=== PATIENT | male | born 1935 | race Caucasian/White ===

== ENCOUNTER → 2016-08-05 | Outpatient (CLI) | payer MEDICARE ==
[2016-08-05 20:35] LABS: BASO % 0 % (0-3); EOS # 0.1 x10^3/uL (0.0-0.7); EOS % 2 % (0-3); HEMATOCRIT 35.8 % (39.0-53.0); HEMOGLOBIN 11.4 g/dL (13.0-17.5); LYMPH % 15 % (24-48); MEAN CORPUSCULAR HEMOGLOBIN 25 pg (25-35); MEAN CORPUSCULAR HGB CONC 32 g/dL (31-37); MEAN CORPUSCULAR VOLUME 78 fL (79-100); MONO # 0.7 x10^3/uL (0.0-1.1); MONO % 11 % (0-9); NEUT # 4.8 x10^3uL (1.8-7.7); NEUT % 72 % (31-73); PLATELET COUNT 128 x10^3/uL (140-400); RED BLOOD COUNT 4.61 x10^6/uL (4.30-5.70); RED CELL DISTRIBUTION WIDTH 17.7 % (11.5-14.5); WHITE BLOOD COUNT 6.7 x10^3/uL (4.0-11.0)
[2016-08-05 20:48] LABS: ALBUMIN 3.6 g/dL (3.4-5.0); CALCIUM 8.4 mg/dL (8.5-10.1); CREATININE 1.5 mg/dL (0.7-1.3); GFR 44.9; POTASSIUM 3.7 mmol/L (3.5-5.1); TOTAL BILIRUBIN 0.5 mg/dL (0.2-1.0); TOTAL PROTEIN 7.1 g/dL (6.4-8.2)
== END | disposition home or self-care (01) ==
LOC: LAB 19:07
PROVIDERS: ATTEND Nurse Practitioner Family
DX: R19.7 Diarrhea, unspecified (principal)
CPT/HCPCS: 36415; 80053; 85027

== ENCOUNTER 2017-11-24 15:09 | Emergency (ER) | payer MEDICARE ==
[~2017-11-24] VITALS: Ht 175.3 cm; Wt 67.4 kg
--- NOTE | 2017-11-24 15:34 | ED.ADGEN ---
Adult General [facility] HPI Patient is a 81 year old male who presents with chest and rib pain. Patient had onset of pain over the left anterior lower portion of his chest. The pain started about 2 hours prior to presentation. Pain has been constant but has waxed and waned in intensity. The pain is not worse with exertion. The patient was at rest when the pain started. He does have a known history of open-heart surgery which she states was for bypass. This was in 1979. The patient is followed by Dr. Lyons. He denies recent illness, fever, cough. He has been at baseline health which is very good. 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 He did not have any diaphoresis or palpitations. He has been compliant with all medications and he does take aspirin daily. Review of Systems Review of Systems Constitutional: Denies fever or chills Eyes: Denies change in visual acuity HENT: Denies nasal congestion Respiratory: Denies cough or shortness of breath Cardiovascular: No additional information not addressed in HPI GI: Denies abdominal pain, nausea, vomiting Musculoskeletal: Denies back pain or joint pain Integument: Denies rash or skin lesions Neurologic: Denies headache Endocrine: Denies polyuria All other systems were reviewed and found to be within normal limits, except as documented in this note. Current Medications Current Medications Current Medications Medications (Trade) Dose Ordered Sig/Tiago Start Time Stop Time Status Last Admin Dose Admin Aspirin (Children'S Aspirin) 324 mg 1X ONCE 11/24/17 16:15 11/24/17 16:17 DC 11/24/17 16:30 324 MG Heparin Sodium (Porcine) (Heparin Sodium) 1,000 unit PRN Q6HRS PRN 11/24/17 16:15 Heparin Sodium/ Dextrose 500 ml @ 0 mls/hr CONT PRN 11/24/17 16:15 11/24/17 16:41 21.6 MLS/HR Nitroglycerin (Nitrostat) 0.4 mg 1X ONCE 11/24/17 16:15 11/24/17 16:17 DC 11/24/17 16:31 0.4 MG Sodium Chloride 1,000 ml @ 125 mls/hr 1X ONCE 11/24/17 16:30 11/25/17 00:29 11/24/17 16:48 125 MLS/HR Allergies Allergies Allergies Coded Allergies Type Severity Reaction Last Updated Verified No Known Drug Allergies 11/24/17 No Physical Exam Physical Exam Constitutional: Well developed, well nourished, no acute distress, non-toxic appearance HENT: Normocephalic, atraumatic, bilateral external ears normal, oropharynx moist, no oral exudates, nose normal Eyes: PERRLA, EOMI, conjunctiva normal Neck: Normal range of motion, no tenderness, supple, no JVD Cardiovascular: [place] heart rate regular rhythm, no murmur Lungs & Thorax: Bilateral breath sounds clear to auscultation, some TTP over the left rib cage Abdomen: Bowel sounds normal, soft, no tenderness Skin: Warm, dry, no erythema, no rash Extremities: no edema. Neurologic: Alert and oriented X 3 Current Patient Data Vital Signs Vital Signs Date Time Temp Pulse Resp B/P (MAP) Pulse Ox O2 Delivery O2 Flow Rate FiO2 11/24/17 16:31 71 170/103 11/24/17 15:10 97.8 18 99 Room Air Lab Results Laboratory Tests Test 11/24/17 15:25 White Blood Count 6.6 x10^3/uL (4.0-11.0) Red Blood Count 4.41 x10^6/uL (4.30-5.70) Hemoglobin 12.2 g/dL (13.0-17.5) L Hematocrit 36.5 % (39.0-53.0) L Mean Corpuscular Volume 83 fL (79-100) Mean Corpuscular Hemoglobin 28 pg (25-35) Mean Corpuscular Hemoglobin Concent 33 g/dL (31-37) Red Cell Distribution Width 17.3 % (11.5-14.5) H Platelet Count 152 x10^3/uL (140-400) Neutrophils (%) (Auto) 68 % (31-73) Lymphocytes (%) (Auto) 19 % (24-48) L Monocytes (%) (Auto) 8 % (0-9) Eosinophils (%) (Auto) 5 % (0-3) H Basophils (%) (Auto) 1 % (0-3) Neutrophils # (Auto) 4.4 x10^3uL (1.8-7.7) Lymphocytes # (Auto) 1.2 x10^3/uL (1.0-4.8) Monocytes # (Auto) 0.5 x10^3/uL (0.0-1.1) Eosinophils # (Auto) 0.3 x10^3/uL (0.0-0.7) Basophils # (Auto) 0.0 x10^3/uL (0.0-0.2) Prothrombin Time 10.2 SEC (9.4-11.4) Prothrombin Time INR 1.0 (0.9-1.1) PTT 24 SEC (23-33) Sodium Level 140 mmol/L (136-145) Potassium Level 4.2 mmol/L (3.5-5.1) Chloride Level 105 mmol/L (98-107) Carbon Dioxide Level 27 mmol/L (21-32) Anion Gap 8 (6-14) Blood Urea Nitrogen 31 mg/dL (8-26) H Creatinine 1.6 mg/dL (0.7-1.3) H Estimated GFR (Cockcroft-Gault) 41.6 Glucose Level 87 mg/dL (70-99) Calcium Level 9.0 mg/dL (8.5-10.1) Troponin I Quantitative 0.115 ng/mL (0-0.055) H UF-Gou-V-Type Natriuretic Peptide 712 pg/mL (0-449) H EKG EKG Sinus Bradycardia. Rate 54. Radiology/Procedures Radiology/Procedures Indication: Chest pain Comparison: None Findings: There is no focal consolidation. There is no pleural effusion or pneumothorax. Prior median sternotomy noted. Heart size is top normal given portable technique. No acute osseous abnormalities are seen. Impression: No evidence of acute cardiopulmonary process. Course & Med Decision Making Course & Med Decision Making Pertinent Labs and Imaging studies reviewed. (See chart for details) Patient is seen immediately on arrival. He is having chest pain that seems mostly musculoskeletal although he does have a very significant history of coronary artery disease. Standard ACS workup is ordered. 16:00: Notified from lab of elevated troponin. Troponin is mildly elevated at 0.11. The patient has low been having pain for 3 hours. He currently states the pain is somewhat improved. Chest x-ray did not reveal acute findings. His vital signs of an stable. EKG is sinus bradycardia with no acute ST elevation. There is some flattening of the T waves in the lateral leads. I discussed this patient with his primary negative spotter who recommends a be transferred to [place] for observation and possible catheterization. Patient was noted to have a creatinine of 1.6. Gentle IV fluid hydration was started in the ER. Heparin bolus/gtt started in the ER. ASA given. NTG x 2 which did improve his pain symptoms. Patient is accepted for xfer to [facility] by Dr. Yun as primary. Plan of care is discussed with the patient and he is agreeable for the transfer. Final Impression Final Impression NSTEMI Dragsameera Disclaimer Dragon Disclaimer This electronic medical record was generated, in whole or in part, using a voice recognition dictation system. MIGUEL DUMONT DO Nov 24, 2017 15:34
[2017-11-24 15:43] LABS: BASO % 1 % (0-3); EOS # 0.3 x10^3/uL (0.0-0.7); EOS % 5 % (0-3); HEMATOCRIT 36.5 % (39.0-53.0); HEMOGLOBIN 12.2 g/dL (13.0-17.5); LYMPH # 1.2 x10^3/uL (1.0-4.8); LYMPH % 19 % (24-48); MEAN CORPUSCULAR HEMOGLOBIN 28 pg (25-35); MEAN CORPUSCULAR HGB CONC 33 g/dL (31-37); MEAN CORPUSCULAR VOLUME 83 fL (79-100); MONO # 0.5 x10^3/uL (0.0-1.1); MONO % 8 % (0-9); NEUT # 4.4 x10^3uL (1.8-7.7); NEUT % 68 % (31-73); PLATELET COUNT 152 x10^3/uL (140-400); RED BLOOD COUNT 4.41 x10^6/uL (4.30-5.70); RED CELL DISTRIBUTION WIDTH 17.3 % (11.5-14.5); WHITE BLOOD COUNT 6.6 x10^3/uL (4.0-11.0)
--- NOTE | 2017-11-24 15:49 | RAD ---
Single view of the chest. 11/24/2017 3:21 PM Indication: Chest pain Comparison: None Findings: There is no focal consolidation. There is no pleural effusion or pneumothorax. Prior median sternotomy noted. Heart size is top normal given portable technique. No acute osseous abnormalities are seen. Impression: No evidence of acute cardiopulmonary process. Electronically signed by: Tani Figueroa MD (11/24/2017 3:45 PM) [facility]
[2017-11-24 16:01] LABS: CREATININE 1.6 mg/dL (0.7-1.3); GFR 41.6; POTASSIUM 4.2 mmol/L (3.5-5.1)
[2017-11-24] MEDS ORDERED: HEPARIN for IV BOLUS 10,000 UNIT/10 ML VIAL. IV ONE (16:15)
[2017-11-24] MEDS ORDERED: ASPIRIN 81 MG TAB.CHEW PO ONE (16:15)
[2017-11-24] MEDS ORDERED: HEPARIN 25,000UTS/500ML PREMIX 500 ML IV PRN (16:15)
[2017-11-24] MEDS ORDERED: NITROGLYCERIN SUBLINGUAL 0.4 MG BOTTLE OF 25. SL ONE ×2 (16:15→17:00)
[2017-11-24] MEDS ORDERED: HEPARIN for IV BOLUS 10,000 UNIT/10 ML VIAL. IV PRN ×2 (16:15)
[2017-11-24] MEDS ORDERED: IV NORMAL SALINE 1,000ML 1,000 ML IV ONE (16:30)
[2017-11-24 17:09] VITALS: BP 168/87
--- NOTE | 2017-11-24 17:48 | EKG ---
[address] [address] Test Date: 2017-11-24 Test Time: 15:16:18 Pat Name: ROSSY WISEMAN Department: Room: Gender: M Vending Service Technician: BROCK : 1935 Requested By: MIGUEL DUMONT Order Number: [id number] Reading MD: Murray Lyons MD Measurements Intervals [place] Rate: 54 P: 36 [place]: 152 QRS: 16 QRSD: 98 T: 75 QT: 412 QTc: 392 Interpretive Statements SINUS RHYTHM Electronically Signed On 11-25-2017 10:45:06 CDT by Murray Lyons MD
== END 2017-11-24 17:08 | disposition short-term general hospital (02) ==
LOC: ER 15:09
DX: I21.4 Non-ST elevation (NSTEMI) myocardial infarction (principal)
CPT/HCPCS: 36415; 71045; 80048; 83880; 84484; 85025; 85610; 85730; 93005; 96365; 96376; 99285; J1644; 96375; J7030

== ENCOUNTER 2020-01-24 04:47 | Emergency (ER) | payer MEDICARE ==
[~2020-01-24] VITALS: Ht 167.6 cm; Wt 65.6 kg
[2020-01-24 05:04] VITALS: BP 143/59
--- NOTE | 2020-01-24 05:31 | PHYS DOC ---
Past History Past Medical History: CAD Past Surgical History: Coronary Bypass Surgery Alcohol Use: None Drug Use: None Adult General Chief Complaint Chief Complaint: LOWER EXT PAIN HPI HPI Patient is a 84-year-old male who presents for right hip pain and urinary complaints. Patient reports right hip pain is been ongoing for past 1 week without any known inciting event or trauma. 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 Nothing known makes better or worse. Patient reports feeling this pain at night when he is sleeping and worse upon wakening. Pain is focal to right lateral hip over tip of greater trochanter and radiates down lateral aspect of the leg. He has been taking Tylenol with mild relief in pain. Patient also complains of increased urinary frequency x1 day. Patient has history of BPH and takes Flomax daily, states he ran out of medication for approximately 1 week but restarted this and has been taking it daily without issues. Patient denies any other UTI- like symptoms such as dysuria or suprapubic pressure, no fever, no new onset incontinence etc. Review of Systems Review of Systems Fourteen body systems of review of systems have been reviewed. See HPI for pertinent positives and negative responses, other solis all other systems are n egative, non-pertinent or non-contributory Allergies Allergies Allergies Coded Allergies Type Severity Reaction Last Updated Verified No Known Drug Allergies 11/24/17 No Physical Exam Physical Exam Constitutional: Well developed, well nourished, no acute distress, non-toxic appearance. HENT: Normocephalic, atraumatic, bilateral external ears normal, oropharynx moist, no oral exudates, nose normal. Eyes: PERRLA, EOMI, conjunctiva normal, no discharge. Neck: Normal range of motion, no tenderness, supple, no stridor. Cardiovascular: Heart rate regular, sinus rhythm, no murmurs rubs or gallops Lungs & Thorax: Bilateral breath sounds clear to auscultation Abdomen: Bowel sounds normal, soft, no tenderness, no masses, no pulsatile masses. Nonsurgical abdomen, no peritoneal signs Skin: Warm, dry, no erythema, no rash. Back: No tenderness, no CVA tenderness. Extremities: No cyanosis, no clubbing, ROM intact, no edema. Pelvis stable. Pain with external hip rotation of right lower extremity and point tenderness over tip of right greater trochanter with out any palpable abnormalities, step- off, or crepitus. No recreation in symptoms with elevation of the legs, bending forwards or backwards Neurologic: Alert and oriented X 3, grossly normal motor & sensory function, no focal deficits noted. Psychologic: Affect normal, judgement normal, mood normal. Current Patient Data Vital Signs Vital Signs Date Time Temp Pulse Resp B/P (MAP) Pulse Ox O2 Delivery O2 Flow Rate FiO2 01/24/20 05:04 98.6 62 20 143/59 (87) 97 Room Air Lab Results Laboratory Tests Test 01/24/20 04:57 Urine Collection Type Unknown Urine Color Yellow Urine Clarity Clear Urine pH 8.5 Urine Specific [place] 1.020 Urine Protein Neg (NEG-TRACE) Urine Glucose (UA) Neg mg/dL (NEG) Urine Ketones (Stick) Neg mg/dL (NEG) Urine Blood Neg (NEG) Urine Nitrite Neg (NEG) Urine Bilirubin Neg (NEG) Urine Urobilinogen Dipstick 0.2 mg/dL (0.2 mg/dL) Urine Leukocyte Esterase Neg (NEG) Urine RBC 0 /HPF (0-2) Urine WBC Occ /HPF (0-4) Urine Squamous Epithelial Cells Occ /LPF Urine Bacteria 0 /HPF (0-FEW) EKG EKG [] Radiology/Procedures Radiology/Procedures 2 view plain radiograph of right hip obtained and interpreted by myself as no acute bony abnormality. Pending official radiologist read at this time Course & Med Decision Making Course & Med Decision Making Well-appearing ambulatory patient seen on immediate ER arrival ABCs non-concerning History and physical examination obtained, subsequent diagnostic studies ordered Discussed negative radiograph of right hip, clinical presentation consistent with most likely diagnosis of right trochanter bursitis versus arthritis. Supportive care and outpatient follow-up with consideration for steroid injection Regarding patient's urinary frequency, I do not feel his increased frequency is infectious in etiology which is supported by negative UA. I feel outpatient PCP/urologist follow-up to discuss symptomology for patient currently using Flomax Ultimately, I discussed limited utility in further diagnostic work-up in ER setting with patient. He has good access to PCP, I advised him to call tomorrow to schedule outpatient follow-up in upcoming 1 to 10 days time Strict return precautions discussed with good understanding by patient, all questions and concerns addressed prior to ER departure in stable condition [place] Disclaimer Dragon Disclaimer This electronic medical record was generated, in whole or in part, using a voice recognition dictation system. Departure Departure: Impression: Primary Impression: Hip pain, right Additional Impressions: Increased urinary frequency BPH (benign prostatic hyperplasia) Disposition: 01 HOME/RESIDENCE PRIOR TO ADM Condition: STABLE Referrals: KAMARI JAMES MD (PCP) Additional Instructions: As discussed prior to ER departure, please call your primary care physician first thing tomorrow morning to schedule outpatient follow-up You will need to discuss your right hip pain which I feel is either arthritis or bursitis, please discuss utility in further diagnostic work-up and/or steroid injection at discretion of your PCP I also recommend you follow-up with your PCP and/or urologist for increased urinary frequency as you are currently on Flomax medication for your BPH If any concerning signs or symptoms persist and/or re-present themselves prior to following up in outpatient setting please feel free to call or visit our ER again for formal evaluation It was a pleasure to take care of you and I wish you a speedy recovery! Justification of Admission: Justification of Admission: Justification of Admission Dx: N/A Problem Qualifiers SAVANNAH DAMIAN DO Jan 24, 2020 05:31
[2020-01-24 05:33] LABS: BACTERIA,URINE 0 /HPF (0-FEW); BILIRUBIN,URINE NEG (NEG); CLARITY,URINE CLEAR; COLOR,URINE YELLOW; GLUCOSE,URINE NEG (NEG); NITRITE,URINE NEG (NEG); RBC,URINE 0 /HPF (0-2); SQUAMOUS EPITHELIAL CELL,UR OCC /LPF; UROBILINOGEN,URINE 0.2 mg/dL (0.2 mg/dL); WBC,URINE OCC /HPF (0-4)
--- NOTE | 2020-01-24 06:22 | RAD ---
RIGHT HIP AP AND LATERAL Clinical Indication: Reason: hip pain / Spl. Instructions: / History: Comparison: None. Findings: There is no acute fracture or dislocation. Mild arthropathy for patient age. Visualized pelvic bones appear intact. Degenerative spondylosis of the lower lumbar spine. Phleboliths in the right pelvis. Mineralization is normal. There is stool in the proximal colon. IMPRESSION: No acute fracture or dislocation. Electronically signed by: Timothy Vargas MD (01/24/2020 6:19 AM) [facility]
== END 2020-01-24 06:10 | disposition home or self-care (01) ==
LOC: ER 04:47
DX: M25.551 Pain in right hip (principal); N40.0 Benign prostatic hyperplasia without lower urinary tract symptoms; I25.810 Atherosclerosis of coronary artery bypass graft(s) without angina pectoris
CPT/HCPCS: 73502; 81001; 99284

== ENCOUNTER → 2020-08-01 | Outpatient (CLI) | payer MEDICARE ==
--- NOTE | 2020-08-01 16:13 | CARD ---
MR#: [id number] Date of Study: 08/01/2020 Ordering Physician: COLT OCASIO, Referring Physician: COLT OCASIO, Tech: Cordelia Ly AIMEE APPROVED REPORT EXAM: Two-dimensional and M-mode echocardiogram with Doppler and color Doppler. Other Information Quality : Good Rhythm : Atrial Fibrillation INDICATION Cardiac Disease: CAD Surgery/Intervention CABG: Date: 2015 2D DIMENSIONS RVDd3.5 (2.9-3.5cm)Left Atrium(2D)5.0 (1.6-4.0cm) IVSd1.0 (0.7-1.1cm)Aortic Root(2D)3.1 (2.0-3.7cm) LVDd4.9 (3.9-5.9cm)LVOT Diameter1.8 (1.8-2.4cm) PWd0.9 (0.7-1.1cm)LVDs4.2 (2.5-4.0cm) FS (%) 15.0 %LVEF(%)30.0 (>50%) Aortic Valve AoV Peak Michael.157.0cm/Eitan Peak GR.3.0mmHg AO Mean GR.2mmHgAVA (VTI)2.20cm2 Pulmonary Valve PV Peak Rdvxqtsa190.0cm/sPV Peak Grad.3mmHg RVOT VTI37.0cm LEFT VENTRICLE The left ventricle is normal size. There is normal left ventricular wall thickness. Left ventricle sy stolic function is moderately impaired. The Ejection Fraction is 40-45%. There is global hypokinesis of the left ventricle. Septal motion suggestive of conduction defect. Tissue Doppler imaging reveals moderate left ventricular diastolic dysfunction. RIGHT VENTRICLE The right ventricle is borderline dilated. The right ventricular systolic function is normal. ATRIA The left atrium is moderately dilated. The right atrium is moderately dilated. The interatrial septum is intact with no evidence for an atrial septal defect or patent foramen ovale as noted on 2-D or Do ppler imaging. AORTIC VALVE The aortic valve is calcified but opens well. Doppler and Color Flow revealed trace aortic regurgitat ion. There is no significant aortic valvular stenosis. MITRAL VALVE The mitral valve is calcified but opens well. There is no evidence of mitral valve prolapse. There is no mitral valve stenosis. Doppler and Color-flow revealed mild mitral regurgitation. TRICUSPID VALVE The tricuspid valve is normal in structure and function. Doppler and Color Flow revealed mild tricusp id regurgitation. There is mild-moderate pulmonary hypertension. The PA pressure was estimated at 40 mmHg. There is no tricuspid valve stenosis. PULMONIC VALVE Doppler and Color Flow revealed mild to moderate pulmonic valvular regurgitation. There is no pulmoni c valvular stenosis. GREAT VESSELS The aortic root is normal in size. The ascending aorta is normal in size. The IVC is normal in size a nd collapses >50% with inspiration. PERICARDIAL EFFUSION There is no evidence of significant pericardial effusion. Critical Notification Critical Value: No <Conclusion> Left ventricle systolic function is moderately impaired. The Ejection Fraction is 40-45%. There is global hypokinesis of the left ventricle. Doppler and Color Flow revealed mild tricuspid regurgitation. There is mild-moderate pulmonary hypert ension. The PA pressure was estimated at 40 mmHg. Doppler and Color Flow revealed mild to moderate pulmonic valvular regurgitation. Signed by : Colt cOasio, Electronically Approved : 08/01/2020 16:12:51
== END ==
LOC: ECHO 10:36
PROVIDERS: ATTEND Internal Medicine Cardiovascular Disease
DX: I08.8 Other rheumatic multiple valve diseases (principal)
CPT/HCPCS: 93306

== ENCOUNTER 2020-09-11 19:21 | Observation (INO) | payer MEDICARE ==
[~2020-09-11] VITALS: Ht 172.7 cm; Wt 62.7 kg
[2020-09-11] MEDS ORDERED: ISOS30TA68 PO (23:27)
[2020-09-11] MEDS ORDERED: HYDR-2868 PO (23:27)
[2020-09-11] MEDS ORDERED: ATOR20TA58 PO (23:27)
[2020-09-11] MEDS ORDERED: TAMS0.4C97 PO (23:27)
[2020-09-12 11:33] VITALS: BP 168/87
[2020-09-12] MEDS ORDERED: ASPI-630 PO (14:04)
== END 2020-09-12 14:35 | disposition home or self-care (01) ==
LOC: ER 19:21 → INTOOBSV 21:33 → 1 SOUTH 21:33
PROVIDERS: ADMIT Internal Medicine; ATTEND Internal Medicine
DX: I63.9 Cerebral infarction, unspecified (principal); N17.9 Acute kidney failure, unspecified; I25.5 Ischemic cardiomyopathy; I13.0 Hypertensive heart and chronic kidney disease with heart failure and stage 1 through stage 4 chronic kidney disease, or unspecified chronic kidney disease; I50.22 Chronic systolic (congestive) heart failure; N18.9 Chronic kidney disease, unspecified; I25.10 Atherosclerotic heart disease of native coronary artery without angina pectoris; I48.91 Unspecified atrial fibrillation; N40.0 Benign prostatic hyperplasia without lower urinary tract symptoms; D64.9 Anemia, unspecified; E78.5 Hyperlipidemia, unspecified; R47.81 Slurred speech; R29.810 Facial weakness; R77.8 Other specified abnormalities of plasma proteins; R29.702 NIHSS score 2; Z79.82 Long term (current) use of aspirin; Z79.899 Other long term (current) drug therapy; Z87.891 Personal history of nicotine dependence; Z91.14 Patient's other noncompliance with medication regimen; Z95.1 Presence of aortocoronary bypass graft
CPT/HCPCS: 36415; 70450; 71045; 80053; 80061; 81001; 82553; 83735; 84484; 85025; 85027; 85610; 85730; 93005; 93880; 96361; 96374; 96376; 99291; G0378; J3490; J7030; G0379

== ENCOUNTER → 2020-09-20 | Outpatient (CLI) | payer MEDICARE ==
[2020-09-12 11:33] VITALS: BP 168/87
[~2020-09-20] MED LIST: ASPI-630 PO; ATOR20TA58 PO; HYDR-2868 PO; ISOS30TA68 PO; REGADENOSON 0.4 MG/5 ML DISP.SYRIN. IV ONE; TAMS0.4C97 PO
--- NOTE | 2020-09-20 15:37 | RAD ---
MR#: [id number] Date of Study: 09/20/2020 Ordering Physician: COLT OCASIO, Referring Physician: KLAUS KELSEY Tech: RT Regino (R) (N) APPROVED REPORT Test Type: Pharmacological Stress Nurse/Tech: RT Regino (R) (N)/Vicky Test Indications: CAD Cardiac History: Yes, See EHR Medications: See EHR Resting Heart Rate: 66 bpm Resting Blood Pressure: 173/81mmHg Pretest Chest Pain: None Pharm. Details Pharmacologic stress testing was performed using 0.4mg per 5ml of regadenoson given intravenously ove r 7-10 seconds. POST EXERCISE Reason for Termination: Infusion complete Blood Pressure response to exercise: Normal blood pressure response during stress. Heart Rate response to exercise: Normal Chest Pain: No. Arrhythmia: Yes. A-FIB INTERPRETATION Stress EKG Conclusion: The resting EKG shows atrial fibrillation and mild nonspecific ST segment patel ges. The stress EKG shows no significant changes from baseline. No EKG evidence of stress-induced ischemia. Imaging Protocol IMAGE PROTOCOL: Rest Tc-99m/stress Tc-99m 1 day Rest: Stress: Viability: Radiopharm.Tc99m QlnbqbxzsBg86b Sestamibi Gkda69oEx 32.5mCi Duration 15min. 15min. Img Date 09/20/2020 09/20/2020 Inj-Img Wzer98zax. 60min. Rest Admin Site:IV - Right AntecubitalAdministrator: RT Regino (R)(N) Stress Admin Site: IV - Right AntecubitalAdministrator: RT Regino (R)(N) STRESS DATA End Diast. Vol.127.0mlAv. Heart Rate96.0bpm End Syst. Vol.53.0mlCO Index BSA0.0L/min Myocardial Nthz696.0gEject. Gnlkcvit94.0% Stress Rates Pk. Fill Rate2.30EDV/secLVtime Pk. Fill 157.67msec Pk. Empty Rate3.15ESV/secLVtime Pk. Hpxvf320.81msec 05/21 Pk. Fill1.38EDV/sec Stress Scores Regional WT1.00Summed WT24.00 Regional WM0.00Summed WM4.00 LV Perfusion The stress scans show a lateral defect. The rest scans show a lateral defect. 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 Minimal nisha-infarct ischemia is present. Wall Motion Left ventricular ejection fraction is 58% with a mild apical lateral wall motion abnormality. LV Perf. Quant 17 Seg. SSS24.00 17 Seg. SRS22.00 17 Seg. SDS2.00 Stress Defect Extent (% LAD)11.30Rest Defect Extent (% LAD)6.90Rev. Defect Extent (% LAD)0.00 Stress Defect Extent (% LCX) 100.00Rest Defect Extent (% LCX)95.00Rev. Defect Extent (% LCX)3.80 Stress Defect Extent (% RCA)18.90Rest Defect Extent (% RCA)11.10Rev. Defect Extent (% RCA)11.10 Stress Defect Extent (% PORTER)38.90Rest Defect Extent (% PORTER)33.00Rev. Defect Extent (% PORTER)3.30 Conclusion 1. Abnormal baseline EKG but no EKG evidence of stress-induced ischemia. 2. 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 3. LV ejection fraction of 58% with mild apical lateral wall motion abnormality. 4. Moderate to moderately low risk nuclear stress test consistent with a prior infarct as noted above and an ejection fraction of 58%. Signed by : Jaime Arteaga MD Electronically Approved : 09/20/2020 15:37:00
== END ==
LOC: NM 08:18
PROVIDERS: ATTEND Internal Medicine Cardiovascular Disease
DX: I25.10 Atherosclerotic heart disease of native coronary artery without angina pectoris (principal)
CPT/HCPCS: 78452; 93017; A9500; J2785